=== PATIENT | female | born 1940 | race Caucasian/White ===

== ENCOUNTER → 2016-10-08 | Outpatient (CLI) | payer MEDICARE, OTHER ==
--- NOTE | 2016-10-08 14:40 | REP ---
PA and lateral chest radiograph 10/08/2016 Indication: Pneumonia Comparison: PA and lateral chest 05/06/2016, 09/27/2015 Findings: The cardiomediastinal silhouette is of normal size. Atherosclerotic changes are noted in the ascending thoracic aorta .There is small amount of perihilar peribronchial thickening and cuffing bilaterally. There is cephalization and prominence of pulmonary vasculature consistent with pulmonary venous hypertension. Small amount of plate-like atelectasis is present within the right upper lobe. There are no pleural effusions. There are mild degenerative changes in thoracic spine. Impression 1. Pulmonary venous hypertension; bronchitis. 2. Plate-like atelectasis in the right upper lobe. Follow-up to resolution recommended Signed by Marissa Mccracken MD 10/08/2016 12:03 P
== END ==
LOC: M ADAMS 11:10
PROVIDERS: ATTEND Physician Assistant Medical
DX: J20.9 Acute bronchitis, unspecified (principal); J98.11 Atelectasis; I27.0 Primary pulmonary hypertension

== ENCOUNTER → 2017-04-11 | Outpatient (REF) | payer MEDICARE, OTHER | LOC: M LAB REF 10:39 | PROVIDERS: ATTEND Physician Assistant | DX: R30.0 Dysuria (principal) ==

== ENCOUNTER → 2017-04-23 | Outpatient (CLI) | payer MEDICARE, OTHER ==
[2017-04-23 10:20] LABS: MEAN CORPUSCULAR HEMOGLOBIN 32.4 pg (27.0-33.0); MEAN CORPUSCULAR HGB CONC 35.7 g/dl (32.0-36.5); MEAN CORPUSCULAR VOLUME 90.6 fl (80.0-96.0); RED CELL DISTRIBUTION WIDTH 12.4 % (11.5-14.5); WHITE BLOOD COUNT 6.9 K/mm3 (4.0-10.0)
--- NOTE | 2017-04-23 10:31 | REP ---
PA and lateral chest: Comparison is 05/06/2016. The lung hutchison are clear. The cardiac size is normal The aryan, mediastinum, and bony thorax are unremarkable. Impression: Negative PA and lateral chest. There is no interval change. Signed by Jey Ibarra MD 04/23/2017 10:23 A
[2017-04-23 10:54] LABS: ALBUMIN 3.9 GM/DL (3.2-5.2); ALBUMIN/GLOBULIN RATIO 1.39 (1.00-1.93); ALKALINE PHOSPHATASE 85 U/L (45-117); ALT/SGPT 23 U/L (12-78); ANION GAP 5 MEQ/L (8-16); AST/SGOT 15 U/L (15-37); BILIRUBIN,TOTAL 0.6 MG/DL (0.2-1.0); BLOOD UREA NITROGEN 19 MG/DL (7-18); CALCIUM LEVEL 8.9 MG/DL (8.8-10.2); CARBON DIOXIDE LEVEL 31 MEQ/L (21-32); CHLORIDE LEVEL 106 MEQ/L (98-107); CHOLESTEROL LEVEL 149 MG/DL (<200); CREATININE FOR GFR 0.54 MG/DL (0.55-1.02); GLOMERULAR FILTRATION RATE > 60.0 (>39); GLUCOSE, FASTING 105 MG/DL (83-110); POTASSIUM SERUM 4.3 MEQ/L (3.5-5.1); SODIUM LEVEL 142 MEQ/L (136-145); TOTAL PROTEIN 6.7 GM/DL (6.4-8.2); TRIGLYCERIDES LEVEL 62 MG/DL (<150)
--- NOTE | 2017-04-23 19:58 | ECGEPIP ---
Stationary ECG Study [facility] Test Date: 2017-04-23 Pat Name: MADELIN MORAES Department: Room: - Gender: F Utilization Review Specialist: : 1940 Requested By: Jabier Beckett Order Number: [id number] Reading MD: Luiz Barbosa Measurements Intervals [place] Rate: 64 P: 36 UT: 219 QRS: 14 QRSD: 69 T: 8 QT: 400 QTc: 416 Interpretive Statements SINUS RHYTHM WITH FIRST DEGREE AV BLOCK No change from 05/06/16 Electronically Signed On 04-23-2017 19:58:26 EDT by Luiz Barbosa
== END ==
LOC: M LAB 09:35
PROVIDERS: ATTEND Family Medicine
DX: I10 Essential (primary) hypertension (principal); R53.83 Other fatigue; Z79.899 Other long term (current) drug therapy

== ENCOUNTER → 2017-05-01 | Outpatient (CLI) | payer MEDICARE, OTHER ==
[~2017-05-01] MED LIST: GASTROGRAFIN SOLUTION 30ML (Q9963) As Ordered ONE; ISOVUE-370 76% 100ML VIAL (Q9967) As Ordered ONE
--- NOTE | 2017-05-01 17:03 | REP ---
CT of the abdomen pelvis multiphase scanning: The study is initially performed without IV contrast with diaphragms to the iliac crests. This is followed by IV contrast enhanced scanning during the arterial phase of enhancement of the diaphragms to the pubic symphysis. This is followed by delayed equilibrium phase scanning from the diaphragms to the iliac crests. There are no comparison studies. The visualized lung hutchison are unremarkable. The hepatic parenchyma is homogeneous on all phases of the study. There are hepatic calcified granulomas. There are surgical clips in the gallbladder fossa. The intrahepatic and extrahepatic biliary ducts demonstrate compensatory dilatation. The pancreas and spleen are unremarkable except for splenic calcified granulomas. The adrenals and abdominal aorta are unremarkable. There is a right renal 3.7 cm simple cyst in the lower pole. The kidneys are otherwise unremarkable. There is no bowel distension or obstruction. Pelvis: The a uterus and adnexa are unremarkable. The bladder is unremarkable. There are occasional sigmoid colon diverticula. There is no CT evidence of diverticulitis. There is no pelvic mass or adenopathy. Impression: There is no pelvic mass, adenopathy or ascites. There is sigmoid colon diverticulosis without diverticulitis. The uterus and adnexa are unremarkable. There is a left renal lower pole cyst measuring up to 3.7 cm. There are calcified granulomas in the liver and spleen. Signed by Jey Ibarra MD 05/01/2017 02:42 P
== END ==
LOC: M RAD 12:08
PROVIDERS: ATTEND Family Medicine
DX: R53.83 Other fatigue (principal); I10 Essential (primary) hypertension; K57.30 Diverticulosis of large intestine without perforation or abscess without bleeding; N28.1 Cyst of kidney, acquired; K76.9 Liver disease, unspecified
CPT/HCPCS: 74178; Q9963; Q9967

== ENCOUNTER 2019-11-06 08:46 | Emergency (ER) | payer MEDICARE, OTHER ==
[~2019-11-06] VITALS: Ht 154.9 cm; Wt 74.0 kg
[2019-11-06] MEDS ORDERED: SERT-141 PO (09:00)
[2019-11-06] MEDS ORDERED: MELO15TA28 PO (09:00)
[2019-11-06] MEDS ORDERED: LEVO50TA5 PO (09:00)
[2019-11-06] MEDS ORDERED: IBUP200C25 PO (09:00)
[2019-11-06] MEDS ORDERED: CARV40CA PO (09:00)
[2019-11-06] MEDS ORDERED: LOSA50TA5 PO (09:00)
[2019-11-06] MEDS ORDERED: CYCLOBENZAPRINE 5MG TABLET PO ONE (09:30)
[2019-11-06] MEDS ORDERED: ACETAMINOPHEN 500 MG TAB PO ONE (09:30)
[2019-11-06] MEDS ORDERED: LIDOCAINE 5% (LIDODERM) PATCH TD ONE (09:30)
--- NOTE | 2019-11-06 10:19 | REP ---
Right lower extremity deep vein duplex ultrasound: The deep veins demonstrate normal compression, normal Doppler color flow and normal Doppler waveforms with respiration and augmentation from the popliteal vein to the common femoral vein. 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 Impression: There is no right lower extremity deep vein thrombus. Electronically Signed by Jey Ibarra MD 11/06/2019 10:10 A
[2019-11-06] MEDS ORDERED: CYCL5TAB PO (10:32)
[2019-11-06 10:50] VITALS: BP 212/97
[2019-11-06] MEDS ORDERED: **NOTE PATIENT COMMENT** MISC XX SCH (21:00)
== END 2019-11-06 11:03 | disposition home or self-care (01) ==
LOC: M ED 08:46
DX: M54.5 Low back pain (principal); M79.604 Pain in right leg; I10 Essential (primary) hypertension; I25.10 Atherosclerotic heart disease of native coronary artery without angina pectoris; I25.2 Old myocardial infarction

== ENCOUNTER 2019-12-19 11:21 | Observation (INO) | payer MEDICARE, OTHER ==
[~2019-12-19] VITALS: Ht 152.4 cm; Wt 74.1 kg
[~2019-12-19 11:21] MED LIST changes: +CARV40CA PO; +CYCL5TAB PO; -GASTROGRAFIN SOLUTION 30ML (Q9963) As Ordered ONE; +IBUP200C25 PO; -ISOVUE-370 76% 100ML VIAL (Q9967) As Ordered ONE; +LEVO50TA5 PO; +LOSA50TA5 PO; +MELO15TA28 PO; +SERT-141 PO
[2019-12-19 12:10] LABS: BASO % 0.2 % (0.0-1.0); EOS % 0.8 % (0.0-3.0); HEMATOCRIT 33.1 % (36.0-47.0); HEMOGLOBIN 11.2 g/dl (12.0-15.5); LYMPH # 0.5 10^3/uL (1.5-5.0); LYMPH % 10.6 % (24.0-44.0); MEAN CORPUSCULAR HEMOGLOBIN 31.6 pg (27.0-33.0); MEAN CORPUSCULAR HGB CONC 33.8 g/dl (32.0-36.5); MEAN CORPUSCULAR VOLUME 93.5 fl (80.0-96.0); MONO # 0.8 10^3/uL (0.0-0.8); MONO % 16.9 % (0.0-5.0); NEUTROPHILS # 3.5 10^3/uL (1.5-8.5); NEUTROPHILS % 70.7 % (36.0-66.0); PLATELET COUNT, AUTOMATED 190 10^3/uL (150-450); RED BLOOD COUNT 3.54 10^6/uL (4.00-5.40); WHITE BLOOD COUNT 4.9 10^3/uL (4.0-10.0)
[2019-12-19] MEDS ORDERED: NEUR100C PO (12:10)
[2019-12-19] MEDS ORDERED: CYCL10TA PO (12:10)
[2019-12-19] MEDS ORDERED: TRAM50TA2 PO (12:10)
[2019-12-19] MEDS ORDERED: ISOVUE-370 76% 100ML VIAL (Q9967) As Ordered ONE (12:22)
[2019-12-19 12:50] LABS: ALBUMIN 3.6 GM/DL (3.2-5.2); ALT/SGPT 25 U/L (12-78); BILIRUBIN,DIRECT 0.1 MG/DL (0.0-0.2); BILIRUBIN,TOTAL 0.4 MG/DL (0.2-1.0); CK-MB VALUE MASS < 1.0 NG/ML (<3.6); CPK CREATINE PHOSPHOKINASE 65 U/L (26-192); FREE T4 1.13 NG/DL (0.76-1.46); MB/CK RELATIVE INDEX 1.54 (< OR =4); TOTAL PROTEIN 6.4 GM/DL (6.4-8.2); TROPONIN I < 0.02 NG/ML (< 0.10)
[2019-12-19] MEDS ORDERED: CARV20CA PO (13:53)
[2019-12-19] MEDS ORDERED: traMADol 50 MG TAB PO PRN (15:00)
--- NOTE | 2019-12-19 16:32 | REP ---
REASON FOR EXAM: Syncopal episode. PRIORS: None. CT BRAIN WITHOUT CONTRAST: TECHNIQUE: 4.5 mm contiguous transaxial sections were obtained from the skull base to the cerebral convexities with thin cuts through the posterior fossa without the administration of intravenous contrast. FINDINGS: The ventricles and sulci are consistent with the patient's age. There are no extra-axial fluid collections. There is no mass effect. The deep cerebral white matter is consistent with the patient's age. The orbital and petrous structures , cerebellopontine angles, and posterior fossa are unremarkable. The sella turcica, cavernous, and paracavernous structures are essentially unremarkable. The visualized portions of the paranasal sinuses and mastoid air cells are clear. Images of the skull base show no gross abnormality. IMPRESSION: Essentially unremarkable CT examination of the brain. Electronically Signed by Kentrell Martin DO 12/19/2019 04:47 P
--- NOTE | 2019-12-19 16:35 | REP ---
REASON: Near syncopal episode. COMPARISON: Multiple. The technique utilized in obtaining the radiograph has magnified the cardiac silhouette and accentuated the interstitial markings. The cardiac silhouette is magnified by technique. The lung hutchison are clear. The pleural angles are sharp. The osseous structures are within normal limits. IMPRESSION: No evidence of acute cardiopulmonary disease. Electronically Signed by Kentrell Martin DO 12/19/2019 04:47 P
--- NOTE | 2019-12-19 16:47 | REP ---
REASON: Pain and swelling. DEEP VENOUS ULTRASONOGRAPHY RIGHT THIGH, RULE OUT DVT: TECHNIQUE: Multiple ultrasonographic images of the deep venous structures of the thigh were obtained from the common femoral vein to the popliteal vein along with Doppler interrogation and color flow Doppler images. FINDINGS: There is no abnormal echogenic material seen within any of the visualized deep venous structures that would suggest acute thrombosis. Coaptation is unremarkable throughout. Doppler interrogation shows an expected response to respiratory variability and augmentation. The color flow images show what appears to be a normal vascular pattern throughout. IMPRESSION: There is no ultrasonographic evidence of deep venous thrombosis involving any of the visualized deep venous structures of the right thigh, as described above. Electronically Signed by Kentrell Martin DO 12/19/2019 04:48 P
--- NOTE | 2019-12-19 17:29 | HPEPDOC ---
[facility] Medical History & Physical Date of Admission Dec 19, 2019 Date of Service: Dec 19, 2019 Attending Physician: PAOLA TURPIN MD History and Physical CHIEF COMPLAINT: Syncope HISTORY OF PRESENT ILLNESS: 79-year-old female with past medical history of coronary artery disease status post stent placement, hypertension, sciatica and hyperlipidemia presents from home after a syncopal episode. Patient reports moderate to severe pain from sciatica causing take multiple pain medications including ibuprofen, gabapentin, tramadol and Flexeril. Tramadol was added to her regimen recently. She reports standing up from a seated position and is silly, passing out. Her was in the next room, who heard her fall. When he came over she was unconscious, regained consciousness within 1-2 minutes, was confused for a few minutes afterwards until returning to her baseline. She has remained well since then, asymptomatic at this time, without any symptoms currently. She has had a similar episode almost a year ago, no episodes in between. She reports moderate to severe sciatic pain for which she has been taking all of her pain meds which may be contributing to her syncope. She denies any short of breath, chest pain, nausea, vomiting, headache, vision changes, abdominal pain, diarrhea or constipation at this time 10 point review of system is negative except for above PAST MEDICAL HISTORY: 1. Coronary artery disease. 2. Hypertension. 3. Hyperlipidemia. 4. Hypothyroidism. 5. Sciatica PAST SURGICAL HISTORY: 1. Cholecystectomy. 2. Coronary stent placement. SOCIAL HISTORY: Never smoker. Social alcohol use. Denies drug use FAMILY HISTORY: Positive for heart disease ALLERGIES: Please see below. HOME MEDICATIONS: Please see below. PHYSICAL EXAMINATION: VITAL SIGNS: Please see below. GENERAL: No distress HEENT: Normocephalic, atraumatic, moist mucous membranes NECK: Supple CARDIOVASCULAR EXAMINATION: S1, S2, no murmurs RESPIRATORY EXAMINATION: Clear to auscultation, no wheezing ABDOMINAL EXAMINATION: Soft, nontender, nondistended, positive bowel sounds EXTREMITIES: Range of motion intact SKIN: No rash NEUROLOGICAL EXAMINATION: Alert and oriented 3, no focal deficits PSYCHIATRIC EXAMINATION: Calm and cooperative LABORATORY DATA: See below. IMAGING: CT chest negative for acute pathology MICROBIOLOGY: Please see below. ASSESSMENT: 79-year-old female with past medical history of coronary artery disease, hypertension, hyperlipidemia and sciatica being admitted for syncope PLAN: 1. Syncope. Possibly medication related, will hold Flexeril, telemetry monitoring, adm itted for observation, will avoid extensive cardiac workup at this time, will monitor clinical progression. 2. Coronary artery disease Continue medical management with aspirin statin and beta cristofer 3. Hypertension. Continue losartan, hydrochlorothiazide and Coreg 4. Hypothyroidism. Continue levothyroxine 5. Sciatica. Hold Flexeril, continue tramadol, gabapentin and as needed Tylenol. DVT progresses: Heparin subcutaneous. GI prophylaxis: Not needed Vital Signs Vital Signs Date Time Temp Pulse Resp B/P (MAP) Pulse Ox O2 Delivery O2 Flow Rate FiO2 12/19/19 15:15 97.3 86 17 174/81 (112) 95 Room Air Laboratory Data Labs 24H Laboratory Tests 2 12/19/19 11:59: Immature Granulocyte % (Auto) 0.8, Neutrophils (%) (Auto) 70.7H, Lymphocytes (%) (Auto) 10.6L, Monocytes (%) (Auto) 16.9H, Eosinophils (%) (Auto) 0.8, Basophils (%) (Auto) 0.2, Neutrophils # (Auto) 3.5, Lymphocytes # (Auto) 0.5L, Monocytes # (Auto) 0.8, Eosinophils # (Auto) 0.0, Basophils # (Auto) 0.0, Nucleated Red Blood Cells % (auto) 0.0, Total Bilirubin 0.4, Direct Bilirubin 0.1, Aspartate Amino Transf (AST/SGOT) 21, Alanine Aminotransferase (ALT/SGPT) 25, Alkaline Phosphatase 98, Total Creatine Kinase 65, Creatine Kinase MB < 1.0, Creatine Kinase MB Relative Index 1.54, Troponin I < 0.02, Total Protein 6.4, Albumin 3.6, Albumin/Globulin Ratio 1.29, Thyroid Stimulating Hormone (TSH) 1.100, Free Thyroxine 1.13 12/19/19 12:01: POC Glucose (Misc Panel) 95, POC Sodium (Misc Panel) 139, POC Potassium (Misc Panel) 3.5, POC Chloride (Misc Panel) 97L, POC Total CO2 (Misc Panel) 29.0H, POC Blood Urea Nitrogen (Misc Panel 15, POC Ionized Calcium (Misc Panel) 4.6, POC Creatinine (Misc Panel) 0.6, POC Hematocrit (Misc Panel) 33.0L CBC/BMP Laboratory Tests 12/19/19 11:59 Microbiology Microbiology 12/19/19 Respiratory Virus Panel (PCR) ([facility]), Received Pending Home Medications Scheduled Carvedilol Phosphate (Carvedilol ER) 20 Mg Cpmp.24hr, 20 MG PO DAILY Cyclobenzaprine HCl (Cyclobenzaprine HCl) 10 Mg Tablet, 10 MG PO BID Gabapentin (Neurontin) 100 Mg Capsule, 100 MG PO QHS Ibuprofen (Ibuprofen) 200 Mg Capsule, 400 MG PO Q8H Levothyroxine Sodium (Levothyroxine Sodium) 50 Mcg Tablet, 50 MCG PO DAILY Losartan/Hydrochlorothiazide (Losartan-Hctz 50-12.5 mg Tab) 1 Each Tablet, 1 TAB PO DAILY Sertraline Hcl (Sertraline HCl) 50 Mg Tablet, 50 MG PO QHS Scheduled PRN Meloxicam (Meloxicam) 15 Mg Tablet, 7.5 MG PO DAILY PRN for PAIN Tramadol HCl (Tramadol HCl) 50 Mg Tablet, 50 MG PO BID PRN for pain Allergies Coded Allergies: No Known Allergies (Unverified , 11/06/19) A-FIB/CHADSVASC A-FIB History Current/History of A-Fib/PAF?: No PAOLA TURPIN MD Dec 19, 2019 16:10
[2019-12-19 17:40] VITALS: BP 192/95
[2019-12-19 18:00] VITALS: BP 187/94
[2019-12-19] MEDS ORDERED: ACETAMINOPHEN TAB 650MG DOSE (2X325MG) PO PRN (19:00)
[2019-12-19] MEDS: OSELTAMIVIR PHOSPHATE 75 MG CAP (TAMIFLU) PO SCH (20:57)
[2019-12-19] MEDS: HEPARIN SOD (PORCINE) 5000 UNITS/ML VIAL (J1644 PER 1000UNITS) SC SCH (20:57)
[2019-12-19] MEDS: CARVedilol 6.25 MG TAB PO SCH (20:59)
[2019-12-19] MEDS ORDERED: GABAPENTIN 100 MG CAP PO SCH (21:00)
[2019-12-19] MEDS ORDERED: SERTRALINE HCL 50 MG TAB PO SCH (21:00)
[2019-12-20 04:00] VITALS: BP 149/80
[2019-12-20] MEDS ORDERED: LEVOTHYROXINE 50MCG TABLET (0.05MG) PO SCH (06:00)
[2019-12-20 06:55] LABS: HEMATOCRIT 31.8 % (36.0-47.0); HEMOGLOBIN 10.7 g/dl (12.0-15.5); MEAN CORPUSCULAR HEMOGLOBIN 31.5 pg (27.0-33.0); MEAN CORPUSCULAR HGB CONC 33.6 g/dl (32.0-36.5); MEAN CORPUSCULAR VOLUME 93.5 fl (80.0-96.0); PLATELET COUNT, AUTOMATED 168 10^3/uL (150-450); WHITE BLOOD COUNT 3.7 10^3/uL (4.0-10.0)
[2019-12-20 07:21] LABS: ALT/SGPT 22 U/L (12-78); BILIRUBIN,TOTAL 0.4 MG/DL (0.2-1.0); BLOOD UREA NITROGEN 12 MG/DL (7-18); CARBON DIOXIDE LEVEL 32 MEQ/L (21-32); CHLORIDE LEVEL 102 MEQ/L (98-107); CREATININE FOR GFR 0.46 MG/DL (0.55-1.30); GLOMERULAR FILTRATION RATE > 60.0 (>39); GLUCOSE, FASTING 96 MG/DL (70-100); MAGNESIUM LEVEL 1.9 MG/DL (1.8-2.4); POTASSIUM SERUM 3.2 MEQ/L (3.5-5.1); SODIUM LEVEL 139 MEQ/L (136-145); TOTAL PROTEIN 6.2 GM/DL (6.4-8.2)
--- NOTE | 2019-12-20 07:23 | ECGEPIP ---
[facility] Test Date: 2019-12-19 Pat Name: MADELIN MORAES Department: Room: [place] [address] Gender: Female Desk Attendant: veronique : 1940 Requested By: Edd Faria Order Number: [id number] Reading MD: Catherine Deleon Measurements Intervals [place] Rate: 83 P: 41 AL: 197 QRS: 8 QRSD: 70 T: 26 QT: 360 QTc: 423 Interpretive Statements SINUS RHYTHM MODERATE VOLTAGE CRITERIA FOR LVH, CONSIDER NORMAL VARIANT INCREASED RATE 04/23/17 Electronically Signed on 12-20-2019 7:23:38 EDT by Catherine Deleon
--- NOTE | 2019-12-20 07:41 | REP ---
REASON: Dyspnea. COMPARISON: None. Contrast 100 mL Isovue 370. There is excellent visualization of the pulmonary arterial vasculature. There are no focal filling defects present that would be considered consistent with pulmonary emboli. The thoracic aorta is within normal limits. There is no mediastinal or hilar adenopathy. There are no pleural or pericardial effusions. The imaged upper abdomen shows hepatic and splenic granulomatous changes otherwise unremarkable. The imaged osseous structures are within normal limits for the patient's age. Evaluation of the lung hutchison show minimal fibrotic and/or subsegmental atelectatic changes in the right upper lobe. There are no abnormal nodules, masses or other opacities. IMPRESSION: 1. There is no evidence of a pulmonary embolus. 2. No significant lung hutchison changes. Electronically Signed by Kentrell Martin DO 12/20/2019 01:28 P
[2019-12-20] MEDS: HEPARIN SOD (PORCINE) 5000 UNITS/ML VIAL (J1644 PER 1000UNITS) SC SCH (09:00)
[2019-12-20] MEDS ORDERED: LOSARTAN 50 MG TAB PO SCH (09:00)
[2019-12-20] MEDS ORDERED: hydroCHLOROthiazide 12.5 MG CAPSULE PO SCH (09:00)
[2019-12-20] MEDS ORDERED: POTASSIUM CHLORIDE 10 MEQ SR TABLET PO SCH (09:00)
[2019-12-20 09:55] VITALS: BP 149/80
[2019-12-20] MEDS: CARVedilol 6.25 MG TAB PO SCH (09:55)
[2019-12-20] MEDS: OSELTAMIVIR PHOSPHATE 75 MG CAP (TAMIFLU) PO SCH (09:56)
[2019-12-20] MEDS ORDERED: OSEL75CA2 PO (10:33)
--- NOTE | 2019-12-20 11:54 | DS.PDOC ---
Discharge Summary General Date of Admission Dec 19, 2019 at 11:22 Date of Discharge 12/20/19 Attending Physician: PAOLA TURPIN MD Discharge Summary PROCEDURES PERFORMED DURING STAY: [None]. ADMITTING DIAGNOSES: 1. . DISCHARGE DIAGNOSES: 1. . COMPLICATIONS/CHIEF COMPLAINT: Acute Low Back Pain W/O Sciatica,Cad,Hld,Htn. HISTORY OF PRESENT ILLNESS: . HOSPITAL COURSE: . DISCHARGE MEDICATIONS: Please see below. ALLERGIES: Please see below. PHYSICAL EXAMINATION ON DISCHARGE: VITAL SIGNS: Please see below. GENERAL: HEENT: NECK: CARDIOVASCULAR EXAMINATION: RESPIRATORY EXAMINATION: ABDOMINAL EXAMINATION: EXTREMITIES: SKIN: NEUROLOGICAL EXAMINATION: PSYCHIATRIC EXAMINATION: LABORATORY DATA: Please see below. IMAGING: PROGNOSIS: ACTIVITY: [As tolerated]. DIET: DISCHARGE PLAN: DISPOSITION: . DISCHARGE INSTRUCTIONS: 1. . ITEMS TO FOLLOWUP ON ON OUTPATIENT: 1. . DISCHARGE CONDITION: [Stable]. TIME SPENT ON DISCHARGE: Greater than minutes. Vital Signs/I&Os Vital Signs Date Time Temp Pulse Resp B/P (MAP) Pulse Ox O2 Delivery O2 Flow Rate FiO2 12/20/19 09:55 149/80 12/20/19 04:00 99.3 79 18 95 Room Air I&O- Last 24 Hours up to 6 AM 12/20/19 06:00 Intake Total 480 ml Output Total 0 ml Balance 480 ml Laboratory Data Labs 24H Laboratory Tests 2 12/19/19 11:59: Immature Granulocyte % (Auto) 0.8, Neutrophils (%) (Auto) 70.7H, Lymphocytes (%) (Auto) 10.6L, Monocytes (%) (Auto) 16.9H, Eosinophils (%) (Auto) 0.8, Basophils (%) (Auto) 0.2, Neutrophils # (Auto) 3.5, Lymphocytes # (Auto) 0.5L, Monocytes # (Auto) 0.8, Eosinophils # (Auto) 0.0, Basophils # (Auto) 0.0, Nucleated Red Blood Cells % (auto) 0.0, Total Bilirubin 0.4, Direct Bilirubin 0.1, Aspartate Amino Transf (AST/SGOT) 21, Alanine Aminotransferase (ALT/SGPT) 25, Alkaline Phosphatase 98, Total Creatine Kinase 65, Creatine Kinase MB < 1.0, Creatine Kinase MB Relative Index 1.54, Troponin I < 0.02, Total Protein 6.4, Albumin 3.6, Albumin/Globulin Ratio 1.29, Thyroid Stimulating Hormone (TSH) 1.100, Free Thyroxine 1.13 12/19/19 12:01: POC Glucose (Misc Panel) 95, POC Sodium (Misc Panel) 139, POC Potassium (Misc Panel) 3.5, POC Chloride (Misc Panel) 97L, POC Total CO2 (Misc Panel) 29.0H, POC Blood Urea Nitrogen (Misc Panel 15, POC Ionized Calcium (Misc Panel) 4.6, POC Creatinine (Misc Panel) 0.6, POC Hematocrit (Misc Panel) 33.0L 12/20/19 06:34: Nucleated Red Blood Cells % (auto) 0.0, Total Bilirubin 0.4, Aspartate Amino Transf (AST/SGOT) 17, Alanine Aminotransferase (ALT/SGPT) 22, Alkaline Phosphatase 80, Total Protein 6.2L, Albumin 3.0L, Albumin/Globulin Ratio 0.94L, Anion Gap 5L, Glomerular Filtration Rate > 60.0, Calcium Level 8.0L, Magnesium Level 1.9 CBC/BMP Laboratory Tests 12/19/19 11:59 12/20/19 06:34 Microbiology Microbiology 12/19/19 Respiratory Virus Panel (PCR) ([facility]) - Final, Complete INFLUENZA A (no subtype) Discharge Medications Scheduled Carvedilol Phosphate (Carvedilol ER) 20 Mg Cpmp.24hr, 20 MG PO DAILY, (Reported) Gabapentin (Neurontin) 100 Mg Capsule, 100 MG PO QHS, (Reported) Levothyroxine Sodium (Levothyroxine Sodium) 50 Mcg Tablet, 50 MCG PO DAILY, (Re ported) Losartan/Hydrochlorothiazide (Losartan-Hctz 50-12.5 mg Tab) 1 Each Tablet, 1 TAB PO DAILY, (Reported) Oseltamivir Phosphate (Oseltamivir Phosphate) 75 Mg Capsule, 75 MG PO BID Sertraline Hcl (Sertraline HCl) 50 Mg Tablet, 50 MG PO QHS, (Reported) Scheduled PRN Tramadol HCl (Tramadol HCl) 50 Mg Tablet, 50 MG PO BID PRN for pain, (Reported) Allergies Coded Allergies: No Known Allergies (Unverified , 11/06/19) PAOLA TURPIN MD Dec 20, 2019 11:54
--- NOTE | 2019-12-20 12:11 | DS.PDOC ---
Discharge Summary General Date of Admission Dec 19, 2019 at 11:22 Date of Discharge 12/20/19 Attending Physician: PAOLA TURPIN MD Discharge Summary PROCEDURES PERFORMED DURING STAY: None. ADMITTING DIAGNOSES: 1. Syncope, influenza. DISCHARGE DIAGNOSES: 1. Syncope, influenza. COMPLICATIONS/CHIEF COMPLAINT: Acute Low Back Pain W/O Sciatica,Cad,Hld,Htn. HISTORY OF PRESENT ILLNESS: 79-year-old female with past medical history of coronary artery disease, hypertension, hyperlipidemia and sciatica who was admitted for syncope. Patient is on 4 separate pain medications, recently started on tramadol. Syncope was likely related to polypharmacy and dehydration from, influenza. Patient was monitored overnight, no events on telemetry monitoring, orthostatics negative, evaluated and cleared by physical therapy for discharge home. Patient was advised to discontinue Flexeril and ibuprofen and take Tylenol in addition to gabapentin/tramadol. Patient will be discharged on Tamiflu for influenza. Patient is clinically, he was on lisinopril for discharge and outpatient follow-up. HOSPITAL COURSE: As above. DISCHARGE MEDICATIONS: Please see below. ALLERGIES: Please see below. PHYSICAL EXAMINATION: VITAL SIGNS: Please see below. GENERAL: No distress HEENT: Normocephalic, atraumatic, moist mucous membranes NECK: Supple CARDIOVASCULAR EXAMINATION: S1, S2, no murmurs RESPIRATORY EXAMINATION: Clear to auscultation, no wheezing ABDOMINAL EXAMINATION: Soft, nontender, nondistended, positive bowel sounds EXTREMITIES: Range of motion intact SKIN: No rash NEUROLOGICAL EXAMINATION: Alert and oriented 3, no focal deficits PSYCHIATRIC EXAMINATION: Calm and cooperative LABORATORY DATA: See below. LABORATORY DATA: Please see below. IMAGING: CT chest negative for acute pathology PROGNOSIS: Fair ACTIVITY: As tolerated. DIET: Cardiac DISCHARGE PLAN: Follow with PCP and bicycle repairman in 1-2 weeks DISPOSITION: Home. DISCHARGE INSTRUCTIONS: 1. As above. DISCHARGE CONDITION: Stable. TIME SPENT ON DISCHARGE: Greater than 27 minutes. Vital Signs/I&Os Vital Signs Date Time Temp Pulse Resp B/P (MAP) Pulse Ox O2 Delivery O2 Flow Rate FiO2 12/20/19 09:55 149/80 12/20/19 04:00 99.3 79 18 95 Room Air I&O- Last 24 Hours up to 6 AM 12/20/19 06:00 Intake Total 480 ml Output Total 0 ml Balance 480 ml Laboratory Data Labs 24H Laboratory Tests 2 12/19/19 11:59: Immature Granulocyte % (Auto) 0.8, Neutrophils (%) (Auto) 70.7H, Lymphocytes (%) (Auto) 10.6L, Monocytes (%) (Auto) 16.9H, Eosinophils (%) (Auto) 0.8, Basophils (%) (Auto) 0.2, Neutrophils # (Auto) 3.5, Lymphocytes # (Auto) 0.5L, Monocytes # (Auto) 0.8, Eosinophils # (Auto) 0.0, Basophils # (Auto) 0.0, Nucleated Red Blood Cells % (auto) 0.0, Total Bilirubin 0.4, Direct Bilirubin 0.1, Aspartate Amino Transf (AST/SGOT) 21, Alanine Aminotransferase (ALT/SGPT) 25, Alkaline Phosphatase 98, Total Creatine Kinase 65, Creatine Kinase MB < 1.0, Creatine Kinase MB Relative Index 1.54, Troponin I < 0.02, Total Protein 6.4, Albumin 3.6, Albumin/Globulin Ratio 1.29, Thyroid Stimulating Hormone (TSH) 1.100, Free Thyroxine 1.13 12/19/19 12:01: POC Glucose (Misc Panel) 95, POC Sodium (Misc Panel) 139, POC Potassium (Misc Panel) 3.5, POC Chloride (Misc Panel) 97L, POC Total CO2 (Misc Panel) 29.0H, POC Blood Urea Nitrogen (Misc Panel 15, POC Ionized Calcium (Misc Panel) 4.6, POC Creatinine (Misc Panel) 0.6, POC Hematocrit (Misc Panel) 33.0L 12/20/19 06:34: Nucleated Red Blood Cells % (auto) 0.0, Total Bilirubin 0.4, Aspartate Amino Transf (AST/SGOT) 17, Alanine Aminotransferase (ALT/SGPT) 22, Alkaline Phosphatase 80, Total Protein 6.2L, Albumin 3.0L, Albumin/Globulin Ratio 0.94L, Anion Gap 5L, Glomerular Filtration Rate > 60.0, Calcium Level 8.0L, Magnesium Level 1.9 CBC/BMP Laboratory Tests 12/19/19 11:59 12/20/19 06:34 Microbiology Microbiology 12/19/19 Respiratory Virus Panel (PCR) ([facility]) - Final, Complete INFLUENZA A (no subtype) Discharge Medications Scheduled Carvedilol Phosphate (Carvedilol ER) 20 Mg Cpmp.24hr, 20 MG PO DAILY, (Reported) Gabapentin (Neurontin) 100 Mg Capsule, 100 MG PO QHS, (Reported) Levothyroxine Sodium (Levothyroxine Sodium) 50 Mcg Tablet, 50 MCG PO DAILY, (Reported) Losartan/Hydrochlorothiazide (Losartan-Hctz 50-12.5 mg Tab) 1 Each Tablet, 1 TAB PO DAILY, (Reported) Oseltamivir Phosphate (Oseltamivir Phosphate) 75 Mg Capsule, 75 MG PO BID Sertraline Hcl (Sertraline HCl) 50 Mg Tablet, 50 MG PO QHS, (Reported) Scheduled PRN Tramadol HCl (Tramadol HCl) 50 Mg Tablet, 50 MG PO BID PRN for pain, (Reported) Allergies Coded Allergies: No Known Allergies (Unverified , 11/06/19) PAOLA TURIPN MD Dec 20, 2019 12:11
== END 2019-12-20 12:06 | disposition home or self-care (01) ==
LOC: M ED 11:21 → M ED INP 11:22 → M MSPAV 17:17
PROVIDERS: ADMIT Internal Medicine; ATTEND Internal Medicine
DX: R55 Syncope and collapse (principal); J10.1 Influenza due to other identified influenza virus with other respiratory manifestations; M54.5 Low back pain; I10 Essential (primary) hypertension; I25.10 Atherosclerotic heart disease of native coronary artery without angina pectoris; E78.49 Other hyperlipidemia; E03.9 Hypothyroidism, unspecified; Z98.61 Coronary angioplasty status; Z79.899 Other long term (current) drug therapy; R06.02 Shortness of breath; M79.661 Pain in right lower leg
CPT/HCPCS: 36415; 70450; 71045; 71275; 80047; 80053; 80076; 82550; 82553; 83735; 84439; 84443; 84484; 85025; 85027; 87486; 87581; 87633; 87798; 93005; 93041; 93971; 94760; 99285; G0378; J1644; Q9967

== ENCOUNTER → 2021-01-19 | Outpatient (REF) | payer MEDICARE, OTHER ==
[~2021-01-19] MED LIST changes: +CARV20CA PO; +CYCL-707 PO; +NEUR100C PO; +OSEL75CA2 PO; +TRAM50TA2 PO
[2021-01-19 12:46] LABS: HEMATOCRIT 38.2 % (36.0-47.0); HEMOGLOBIN 12.9 g/dl (12.0-15.5); MEAN CORPUSCULAR HEMOGLOBIN 31.9 pg (27.0-33.0); MEAN CORPUSCULAR HGB CONC 33.8 g/dl (32.0-36.5); MEAN CORPUSCULAR VOLUME 94.6 fl (80.0-96.0); PLATELET COUNT, AUTOMATED 242 10^3/uL (150-450); RED BLOOD COUNT 4.04 10^6/uL (4.00-5.40); WHITE BLOOD COUNT 6.8 10^3/uL (4.0-10.0)
[2021-01-19 13:54] LABS: ALT/SGPT 18 U/L (12-78); BILIRUBIN,TOTAL 0.4 MG/DL (0.2-1.0); BLOOD UREA NITROGEN 17 MG/DL (7-18); CALCIUM LEVEL 9.8 MG/DL (8.8-10.2); CARBON DIOXIDE LEVEL 30 MEQ/L (21-32); CHLORIDE LEVEL 104 MEQ/L (98-107); CHOLESTEROL LEVEL 229 MG/DL (<200); CREATININE FOR GFR 0.49 MG/DL (0.55-1.30); GLOMERULAR FILTRATION RATE > 60.0 (>39); GLUCOSE, FASTING 108 MG/DL (70-100); HDL CHOLESTEROL 48 MG/DL (>40); LDL CHOLESTEROL 156 MG/DL (<100); NON-HDL-C 181 MG/DL; POTASSIUM SERUM 4.3 MEQ/L (3.5-5.1); SODIUM LEVEL 141 MEQ/L (136-145); TOTAL 25(OH) VITAMIN D 20.1 NG/ML (30.0-100.0); TOTAL PROTEIN 6.9 GM/DL (6.4-8.2); TRIGLYCERIDES LEVEL 127 MG/DL (<150)
[2021-01-19 14:08] LABS: HEMOGLOBIN A1c 5.3 %
== END ==
LOC: M LABDRWAD 12:24
PROVIDERS: ATTEND Family Medicine
DX: D64.9 Anemia, unspecified (principal); R53.83 Other fatigue; I10 Essential (primary) hypertension; E03.9 Hypothyroidism, unspecified; Z79.899 Other long term (current) drug therapy

== ENCOUNTER → 2021-09-18 | Outpatient (REF) | payer MEDICARE, OTHER ==
[2021-09-18 13:18] LABS: ALBUMIN 3.9 GM/DL (3.2-5.2); ALT/SGPT 27 U/L (12-78); BILIRUBIN,TOTAL 0.6 MG/DL (0.2-1.0); BLOOD UREA NITROGEN 14 MG/DL (7-18); CALCIUM LEVEL 9.4 MG/DL (8.8-10.2); CARBON DIOXIDE LEVEL 32 MEQ/L (21-32); CHLORIDE LEVEL 105 MEQ/L (98-107); CHOLESTEROL LEVEL 120 MG/DL (<200); CHOLESTEROL RISK RATIO 2.727 (<5); CREATININE FOR GFR 0.55 MG/DL (0.55-1.30); GLOMERULAR FILTRATION RATE > 60.0 (>39); GLUCOSE, FASTING 102 MG/DL (70-100); HDL CHOLESTEROL 44 MG/DL (>40); LDL CHOLESTEROL 61 MG/DL (<100); NON-HDL-C 76 MG/DL; POTASSIUM SERUM 3.9 MEQ/L (3.5-5.1); SODIUM LEVEL 143 MEQ/L (136-145); TOTAL PROTEIN 6.8 GM/DL (6.4-8.2); TRIGLYCERIDES LEVEL 76 MG/DL (<150)
== END ==
LOC: M LABDRWAD 12:22
PROVIDERS: ATTEND Physician Assistant
DX: E78.00 Pure hypercholesterolemia, unspecified (principal)

== ENCOUNTER → 2022-07-22 | Outpatient (CLI) | payer MEDICARE, OTHER ==
[2022-07-22 13:52] LABS: HEMATOCRIT 36.5 % (36.0-47.0); HEMOGLOBIN 12.4 g/dl (12.0-15.5); MEAN CORPUSCULAR HEMOGLOBIN 32.5 pg (27.0-33.0); MEAN CORPUSCULAR VOLUME 95.5 fl (80.0-96.0); PLATELET COUNT, AUTOMATED 231 10^3/uL (150-450); RED BLOOD COUNT 3.82 10^6/uL (4.00-5.40); WHITE BLOOD COUNT 7.6 10^3/uL (4.0-10.0)
[2022-07-22 14:23] LABS: HEMOGLOBIN A1c 5.3 %
[2022-07-22 14:48] LABS: ALT/SGPT 20 U/L (12-78); BILIRUBIN,TOTAL 0.6 MG/DL (0.2-1.0); BLOOD UREA NITROGEN 15 MG/DL (7-18); CALCIUM LEVEL 9.1 MG/DL (8.8-10.2); CARBON DIOXIDE LEVEL 32 MEQ/L (21-32); CHLORIDE LEVEL 106 MEQ/L (98-107); CHOLESTEROL LEVEL 137 MG/DL (<200); CHOLESTEROL RISK RATIO 2.362 (<5); CREATININE FOR GFR 0.51 MG/DL (0.55-1.30); GLOMERULAR FILTRATION RATE > 60.0 (>32); GLUCOSE, FASTING 104 MG/DL (70-100); HDL CHOLESTEROL 58 MG/DL (>40); LDL CHOLESTEROL 65 MG/DL (<100); NON-HDL-C 79 MG/DL; POTASSIUM SERUM 4.3 MEQ/L (3.5-5.1); SODIUM LEVEL 142 MEQ/L (136-145); THYROID STIMULATING HORMONE 0.912 uIU/ML (0.358-3.740); TOTAL PROTEIN 6.8 GM/DL (6.4-8.2); TRIGLYCERIDES LEVEL 71 MG/DL (<150)
[2022-07-22 15:11] LABS: TOTAL 25(OH) VITAMIN D 34.2 NG/ML (30.0-100.0)
== END ==
LOC: M PLALAB 11:15
PROVIDERS: ATTEND Family Medicine
DX: D64.9 Anemia, unspecified (principal); R53.83 Other fatigue; E03.9 Hypothyroidism, unspecified; Z79.899 Other long term (current) drug therapy

== ENCOUNTER → 2022-07-22 | Outpatient (CLI) | payer MEDICARE, OTHER ==
[2022-07-22 14:23] LABS: BLOOD UREA NITROGEN 14 MG/DL (7-18); GLOMERULAR FILTRATION RATE > 60.0 (>32)
== END ==
LOC: M PLALAB 11:13
PROVIDERS: ATTEND Internal Medicine Gastroenterology
DX: R19.7 Diarrhea, unspecified (principal); R11.2 Nausea with vomiting, unspecified

== ENCOUNTER → 2022-07-26 | Outpatient (CLI) | payer MEDICARE, OTHER ==
[~2022-07-26] MED LIST changes: +GASTROGRAFIN SOLUTION 30ML (Q9963) As Ordered ONE; +ISOVUE-370 76% 100ML VIAL As Ordered ONE
== END ==
LOC: M RAD 14:17
PROVIDERS: ATTEND Internal Medicine Gastroenterology
DX: R11.2 Nausea with vomiting, unspecified (principal); R19.7 Diarrhea, unspecified; N28.1 Cyst of kidney, acquired
CPT/HCPCS: 74177; Q9963; Q9967

== ENCOUNTER → 2024-06-25 | Outpatient (REF) | payer MEDICARE, OTHER ==
[~2024-06-25] MED LIST changes: -GASTROGRAFIN SOLUTION 30ML (Q9963) As Ordered ONE; -ISOVUE-370 76% 100ML VIAL As Ordered ONE
[2024-06-25 13:34] LABS: HEMATOCRIT 36.6 % (36.0-47.0); HEMOGLOBIN 11.8 g/dl (12.0-15.5); MEAN CORPUSCULAR HEMOGLOBIN 31.1 pg (27.0-33.0); MEAN CORPUSCULAR HGB CONC 32.2 g/dl (32.0-36.5); MEAN CORPUSCULAR VOLUME 96.3 fl (80.0-96.0); PLATELET COUNT, AUTOMATED 205 10^3/uL (150-450); WHITE BLOOD COUNT 6.3 10^3/uL (4.0-10.0)
[2024-06-25 13:35] LABS: ALBUMIN 3.8 G/DL (3.2-5.2); ALKALINE PHOSPHATASE 83 U/L (46-116); ALT/SGPT 21 U/L (7.0-40); AST/SGOT 18 U/L (<34); BILIRUBIN,TOTAL 0.5 MG/DL (0.3-1.2); BLOOD UREA NITROGEN 23 MG/DL (9-23); CARBON DIOXIDE LEVEL 30 MMOL/L (20-31); CHLORIDE LEVEL 107 MMOL/L (98-107); CHOLESTEROL LEVEL 118 MG/DL (<200); CREATININE FOR GFR 0.53 MG/DL (0.55-1.30); GLOMERULAR FILTRATION RATE > 60.0 (>32); GLUCOSE, FASTING 95 MG/DL (74-106); LDL CHOLESTEROL 61.8 MG/DL (<100); POTASSIUM SERUM 3.9 MMOL/L (3.5-5.1); SODIUM LEVEL 140 MMOL/L (136-145); TOTAL PROTEIN 6.4 G/DL (5.7-8.2); TRIGLYCERIDES LEVEL 71 MG/DL (<150)
[2024-06-25 13:36] LABS: THYROID STIMULATING HORMONE 1.112 uIU/ML (0.55-4.78)
[2024-06-25 13:37] LABS: TOTAL 25(OH) VITAMIN D 33.9 NG/ML (20.0-100.0)
[2024-06-25 13:48] LABS: HEMOGLOBIN A1c 5.2 % (4.0-6.0)
== END ==
LOC: M LABDRWAD 12:41
PROVIDERS: ATTEND Family Medicine
DX: I10 Essential (primary) hypertension (principal); R53.83 Other fatigue; E03.9 Hypothyroidism, unspecified; Z79.899 Other long term (current) drug therapy

== ENCOUNTER 2024-09-29 19:23 | Emergency (ER) | payer MEDICARE, OTHER ==
[~2024-09-29 19:23] MED LIST changes: -CYCL5TAB PO; +CYCL5TAB4 PO
[2024-09-29 20:03] LABS: BASO % 0.2 % (0.0-1.0); EOS # 0.1 10^3/uL (0.0-0.5); EOS % 0.5 % (0.0-3.0); HEMATOCRIT 41.3 % (36.0-47.0); HEMOGLOBIN 13.7 g/dl (12.0-15.5); LYMPH # 0.5 10^3/uL (1.5-5.0); LYMPH % 4.1 % (24.0-44.0); MEAN CORPUSCULAR HEMOGLOBIN 31.4 pg (27.0-33.0); MEAN CORPUSCULAR HGB CONC 33.2 g/dl (32.0-36.5); MEAN CORPUSCULAR VOLUME 94.7 fl (80.0-96.0); MONO # 1.2 10^3/uL (0.0-0.8); MONO % 9.8 % (2.0-8.0); NEUTROPHILS # 10.3 10^3/uL (1.5-8.5); NEUTROPHILS % 85.2 % (36.0-66.0); PLATELET COUNT, AUTOMATED 221 10^3/uL (150-450); RED BLOOD COUNT 4.36 10^6/uL (4.00-5.40); WHITE BLOOD COUNT 12.1 10^3/uL (4.0-10.0)
[2024-09-29] MEDS ORDERED: ROSU5TAB49 PO (20:14)
[2024-09-29] MEDS ORDERED: HYDR12.55 PO (20:14)
[2024-09-29] MEDS ORDERED: ASPI81CH33 PO (20:14)
[2024-09-29 20:22] LABS: LIPASE 59 U/L (12-53)
[2024-09-29 20:24] LABS: ALBUMIN 4.1 G/DL (3.2-5.2); ALKALINE PHOSPHATASE 92 U/L (35-104); ALT/SGPT 18 U/L (7.0-40); AST/SGOT 21 U/L (<34); BILIRUBIN,DIRECT 0.2 MG/DL (<0.4); BILIRUBIN,TOTAL 0.6 MG/DL (0.3-1.2); BLOOD UREA NITROGEN 20 MG/DL (9-23); CALCIUM LEVEL 9.5 MG/DL (8.3-10.6); CARBON DIOXIDE LEVEL 30 MMOL/L (20-31); CHLORIDE LEVEL 105 MMOL/L (98-107); CREATININE FOR GFR 0.68 MG/DL (0.55-1.30); GLOMERULAR FILTRATION RATE > 60.0 (>32); GLUCOSE, FASTING 139 MG/DL (74-106); POTASSIUM SERUM 3.6 MMOL/L (3.5-5.1); SODIUM LEVEL 144 MMOL/L (136-145); TOTAL PROTEIN 6.8 G/DL (5.7-8.2)
[2024-09-29] MEDS: ONDANSETRON 4MG 2ML VIAL IV ONE (21:25)
[2024-09-29] MEDS: NS (Normal Saline) 0.9% 1,000 ML IV ONE (21:45)
[2024-09-29] MEDS ORDERED: ISOVUE-370 76% 100ML VIAL As Ordered ONE (21:49)
[2024-09-29] MEDS ORDERED: ONDA-282 PO (22:43)
[2024-09-29 22:45] VITALS: BP 162/72; TEMP 98.7; O2SAT 96
== END 2024-09-29 23:02 | disposition home or self-care (01) ==
LOC: M ED 19:23 → EDBD 19:23 → M ED 23:02
DX: K52.9 Noninfective gastroenteritis and colitis, unspecified (principal); I10 Essential (primary) hypertension; E03.9 Hypothyroidism, unspecified; N28.1 Cyst of kidney, acquired; I51.7 Cardiomegaly; Z90.49 Acquired absence of other specified parts of digestive tract; Z79.82 Long term (current) use of aspirin; Z79.83 Long term (current) use of bisphosphonates; Z79.899 Other long term (current) drug therapy
CPT/HCPCS: 74177; 80047; 80048; 80076; 83690; 85025; 87486; 87581; 87633; 87798; 96360; 99284; Q9967

== ENCOUNTER → 2025-07-22 | Outpatient (CLI) | payer MEDICARE, OTHER ==
[~2025-07-22] MED LIST changes: +ASPI81CH33 PO; +HYDR12.55 PO; +ONDA-282 PO; +ROSU5TAB49 PO
== END ==
LOC: M WHC 12:53
PROVIDERS: ATTEND Physician Assistant Medical
DX: I65.23 Occlusion and stenosis of bilateral carotid arteries (principal)